=== PATIENT | male | born 2005 | race Caucasian/White ===

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

== ENCOUNTER 2025-01-24 11:22 | Outpatient (NON) | payer BC, SELFPAY ==
--- OUTSIDE RECORDS SUMMARY | 2025-01-24 11:55 | XMS_ITS | Clinical Summary ---
Author Organization [facility] [employer] Address [address] [place] [address] Care Team Providers Care Wire Drawing Machine Tender Name Role Phone Chucky Morrison MD Primary Care Provider [phone] Source Comments [facility] [employer]non-owned Affiliates and Associated Physician Practices is amultiple site organization consisting of ambulatory clinics and hospital sitesin [place], [place], [place] and [place]. This disclosure is being madepursuant to the Care Everywhere program and may not contain all information available regarding this patient. Last updated 18.[employer] Allergies No known active allergies Medications * Be aware that medications may not be up to date on this document. Alwaysverify current medications with the patient. Escitalopram Oxalate (LEXAPRO PO) Active Esomeprazole Magnesium (NEXIUM PO) Active Cetirizine HCl (ZYRTEC PO) Active Active Problems Problem Noted Date Diagnosed Date Current episode of major dep ressive disorder without prior episode 02/22/2018 Generalized anxiety disorder 02/22/2018 Chronic fatigue 02/02/2018 Impaired functional mobility and activity tolera nce 02/02/2018 Family History Medical History Relation Name Comments Cancer - Lung Maternal Grandfather Cancer - Other Maternal Grandmother cervi luis Cancer - Breast Paternal Grandmother Relation Name Status Comments Maternal Grandfather Maternal Grandmother Paternal Grandmother Social History Tobacco Use Types Packs/Day Years Used Date Smoking Tobacco: Never Smokeless Tobacco: Never Comments:non-smoking househo ld Sex and Gender Information Value Date Recorded Sex Assigned at Not on file 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 Gender Identity Not on file Sexual Orientation Not on file Last Filed Vital Signs Vital Sign Reading Time Taken Comments Blood Pressure 108/66 01/26/2019 10:15 AM CDT Pulse 90 01/26/2019 10:15 AM CDT Temperature 36.9 C (98.5 F) 01/26/2019 10:15 AM CDT Respiratory Rate 18 01/26/2019 10:15 AM CDT Oxygen Saturation 97% 01/26/2019 10:15 AM CDT Inhaled Oxygen Concentration - - Weight 65.8 kg (145 lb) 01/26/2019 10:15 AM CDT Height 185.4 cm (6' 1) 01/26/2019 10:15 AM CDT Body Mass Index 19.13 01/26/2019 10:15 AM CDT Plan of Treatment Health Maintenance Due Date Last Done Comments HIV SCREENING 11/13/2019 HPV VACCINE (1 - Male 3-dose series) 11/13/2019 MENINGOCOCCAL (Group B) VACC INE SHARED DECISION-MAKING (1 of 2 - Standard) 2020 HEPATITIS C SCREENING 11/08/2022 DTAP/TDAP/TD VACCINES (1 - Tdap) 11/13/2023 HEPATITIS B VACCINE (1 of 3 - 19+ 3-dose series) 11/13/2023 COVID-19 VACCINE (1 - 2023-2 5 season) 2024 DEPRESSION SCREENING 06/08/2024 INFLUENZA VACCINE (#1) 2025 ZOSTER VACCINE (1 of 2) 2054 HIB VACCINE Aged Out No longer eligi ble based on patient's age to complete this topic MENINGOCOCCAL GROUPS A/C/Y/W VACCINE Aged Out No longer eligible b ased on patient's age to complete this topic PNEUMOCOCCAL VACCINE Aged Out No long er eligible based on patient's age to complete this topic Insurance [facility] Care Teams Wire Drawing Machine Tender Relationship Specialty Start Date End Date Chucky Morrison MD [address] [place] [address] PCP - General Pediatrics 06/15/16
[2025-01-24 13:12] LABS: Add Urine Microscopic? YES; Appearance Urine Cloudy (Clear); Glucose Urine UA Negative (Negative); Leukocyte Esterase Ur Trace LEU/UL (Negative); Nitrate Urine Negative (Negative); Specific Grav Ur 1.025 (1.001-1.035)
== END 2025-01-24 11:23 | disposition home or self-care (01) ==
LOC: ANHGOSHLAB 11:23
PROVIDERS: PCP Family Medicine; Visit Provider Nurse Practitioner Family
DX: R30.0 Dysuria (principal); Z87.440 Personal history of urinary (tract) infections; R39.15 Urgency of urination
CPT/HCPCS: 81001

== ENCOUNTER 2025-04-28 11:20 | Outpatient (NON) | payer BC, SELFPAY ==
--- OUTSIDE RECORDS SUMMARY | 2025-04-28 11:22 | XMS_ITS | Clinical Summary ---
Author Organization [facility] [employer] Address [address] [place] [address] Care Team Providers Care Fisheries Inspector Name Role Phone Chucky Morrison MD Primary Care Provider Source Comments [facility] [employer],non-owned Affiliates and Associated Physician Practices is amultiple site organization consisting of ambulatory clinics and hospital sitesin [place], [place], [place] and [place]. This disclosure is being madepursuant to the Care Everywhere program and may not contain all information available regarding this patient. 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 Gender Identity Not on file Sexual Orientation [...] of 3 - 19+ 3-dose series) 11/13/2023 DEPRESSION SCREENING 06/08/2024 COVID-19 VACCINE (1 - 2023-2 5 season) 2025 INFLUENZA VACCINE (#1) 2025 ZOSTER VACCINE (1 of 2) 2054 HIB VACCINE Aged Out No longer eligi ble based on patient's age to complete this topic MENINGOCOCCAL GROUPS A/C/Y/W VACCINE Aged Out No longer eligible b ased on patient's age to complete this topic PNEUMOCOCCAL VACCINE Aged Out No long er eligible based on patient's age to complete this topic Insurance [facility] Care Teams Fisheries Inspector Relationship Specialty Start Date End Date Chucky Morrison MD [address] [place] [address] PCP - General Pediatrics 06/15/16
[2025-04-28 13:03] LABS: Add Urine Microscopic? YES; Appearance Urine Clear (Clear); Glucose Urine UA Negative (Negative); Leukocyte Esterase Ur 1+ LEU/UL (Negative); Nitrate Urine Negative (Negative); Non Pathogenic Casts 0-2; Specific Grav Ur 1.023 (1.001-1.035)
== END 2025-04-28 11:21 | disposition home or self-care (01) ==
LOC: ANHGOSHLAB 11:21
PROVIDERS: PCP Family Medicine; Visit Provider Nurse Practitioner Family
DX: R30.0 Dysuria (principal)
CPT/HCPCS: 81001; 87086